=== PATIENT | female | born 1950 | race Caucasian/White ===

== ENCOUNTER 2023-04-24 10:17 | Outpatient (AMB) | payer MEDICARE, OTHER, SELFPAY ==
--- NOTE | 2023-04-24 11:23 | MHC.OFFWIV ---
Intake Vital Signs 04/24/23 11:24 Height 5 ft Weight 155 lb BMI 30.3 BP 160/100 H Blood Pressure Location Lt brachial Position Sitting Pulse 82 Pulse Source Pulse Oximeter Temp 97.1 F Temp Source Temporal Artery Scan Pulse Oximetry (%) 97 Oxygen Delivery Method Room Air Intake Visit Reasons: [employer]/ left eye irritation ([phone]) Intake Note: pt is here today for lft eye irritation started 1 week ago Patient Tobacco Use Status: Never used Tobacco Allergies No Known Allergies Allergy (Verified 04/24/23 11:25) Do you need a note to return to daycare/school/sports/work: No HPI HPI Comments History of Present Illness Details 73-year-old female presents today with a lesion on her upper eyelids. Denies any discharge or trauma to the area [facility] Social History Patient Tobacco Use Status: Never used Tobacco Review of Systems Const All systems reviewed & are unremarkable except as noted in HPI and below Physical Exam Vital Signs: Last Vital Signs Temp 97.1 F 04/24/23 11:24 Pulse 82 04/24/23 11:24 BP 160/100 H 04/24/23 11:24 Pulse Ox 97 04/24/23 11:24 Oxygen Delivery Method Room Air 04/24/23 11:24 BMI result Body Mass Index 30.3 Eyes Eyelids: Yes eyelid abnormality Conjunctivae: other (hordeolum present) Assessment & Plan Assessment & Plan (1) Hordeolum external: Code(s): H00.019 - Hordeolum externum unspecified eye, unspecified eyelid Plan: Erythromycin ophthalmic ointment ordered Plan See plan Medications: New erythromycin 1 appl ophthalmic-Left TID 3.5 grams 0RF Coding Level of Care Code Est Pt Level 3 (45962) Diagnoses Hordeolum external H00.019
[2023-04-24 11:24] VITALS: BP 160/100; PULSE 82; TEMP 36.2; O2SAT 97; BMI 30.3
== END 2023-04-24 12:05 | disposition home or self-care (01) ==
PROVIDERS: Visit Provider Physician Assistant Medical
DX: H00.019 Hordeolum externum unspecified eye, unspecified eyelid (principal)
CPT/HCPCS: 99213

== ENCOUNTER 2023-11-24 08:36 | Outpatient (AMB) | payer MEDICARE, OTHER, SELFPAY ==
--- NOTE | 2023-11-24 08:48 | AM.OFFWIN_ITS ---
Intake Vital Signs 11/24/23 08:49 Weight 154 lb BP 140/80 H Blood Pressure Location Lt brachial Position Sitting Pulse 90 Pulse Source Pulse Oximeter Pulse Oximetry (%) 97 Oxygen Delivery Method Room Air Intake Visit Reasons: EP left lower abdominal pain Intake Note: Patient here for lower left abdominal pain that has been present for about 2 days and is a sharp pain. Patient Tobacco Use Status: Never used Tobacco Allergies No Known Allergies Allergy (Verified 11/24/23 08:50) Do you need a note to return to daycare/school/sports/work: No HPI HPI Comments History of Present Illness Details Patient is a 73-year-old female complaining of 2 days of left lower abdominal sharp pain. She denies any fevers, nausea, vomiting, diarrhea, burning with urination, blood in her urine or low back pain aside from her chronic low back pain. She tells me she did have 1 episode of increased urgency 2 days ago but has not had any other symptoms since then. She denies a history of kidney stones. She does tell me that on 1 of her colonoscopies, she was told she has diverticulosis but has never had a diverticulitis flare. She also tells me she is concerned because 3 days ago, her sister gave her some cashew clusters and she is worried it set off a diverticulitis flare. She states she has taken since Colace to see if that would help but it did not, she states she is passing gas and moving her bowels as normal. [facility] Social History Patient Tobacco Use Status: Never used Tobacco Review of Systems Const All systems reviewed & are unremarkable except as noted in HPI and below Physical Exam Vital Signs: Last Vital Signs Pulse 90 11/24/23 08:49 BP 140/80 H 11/24/23 08:49 Pulse Ox 97 11/24/23 08:49 Oxygen Delivery Method Room Air 11/24/23 08:49 Const General: cooperative, healthy appearing, comfortable, no acute distress and well developed Orientation/consciousness: patient oriented x3 Limitations: no limitations HEENT Head: Yes normal to inspection Eyes General: appearance normal, both eyes and all related structures Neck Neck: Yes normal visual inspection and Yes full ROM Resp Effort & Inspection: normal respiratory effort and able to speak in complete sentences GI Inspection: Yes normal to inspection Palpation (GI): Soft to palpation and Tenderness to palpation present (GI) in the LLQ and suprapubicly General: Yes CVA tenderness Back/Spine/Pelvis Back: CVA tenderness Skin General skin exam: no rashes or lesions noted Neuro General: patient oriented x3 Extrem General: Yes normal to inspection Results AMB Urinalysis, Automated UA Leukoctes 0 Jamal/uL Last Edit by YOMI Fields on 11/24/23 09:15 UA Nitrite Negative Last Edit by Carol Jewell [facility] on 11/24/23 09:15 UA Urobilinogen 0.2 mg/dL Last Edit by Carol Jewell [facility] on 11/24/23 09:15 UA Protein 0 mg/dL Last Edit by Carol Jewell [facility] on 11/24/23 09:15 UA pH 6.0 Last Edit by Carol Jewell [facility] on 11/24/23 09:15 UA Blood 0 Steve/uL Last Edit by Carol Jewell [facility] on 11/24/23 09:15 UA Specific [place] 1.005 Last Edit by Carol Jewell [facility] on 11/24/23 09:15 UA Ketone Negative Last Edit by Carol Jewell [facility] on 11/24/23 09:15 UA Bilirubin 0 mg/dL Last Edit by Carol Jewell [facility] on 11/24/23 09:15 UA Glucose 0 mg/dL Last Edit by Carol Jewell [facility] on 11/24/23 09:15 Results Reviewed Results Reviewed: Laboratory Last Values Urine pH (Auto) 6.0 11/24/23 09:14 Specific [place] (Auto) 1.005 11/24/23 09:14 Urine Protein (Auto) 0 mg/dL 11/24/23 09:14 Glucose (UA)(Auto) 0 mg/dL 11/24/23 09:14 Urine Ketones (Auto) Negative 11/24/23 09:14 Urine Blood (Auto) 0 Steve/uL 11/24/23 09:14 Urine Nitrite (Auto) Negative 11/24/23 09:14 Urine Bilirubin (Auto) 0 mg/dL 11/24/23 09:14 Urine Urobilinogen (Auto) 0.2 mg/dL 11/24/23 09:14 Leukocyte Esterase (Auto) 0 Jamal/uL 11/24/23 09:14 Assessment & Plan Assessment & Plan (1) Diverticulitis: Code(s): K57.92 - Diverticulitis of intestine, part unspecified, without perforation or abscess without bleeding Plan: Vital signs are stable, patient well-appearing, however she was exquisitely tender in the left lower quadrant, UA was negative for infection or blood. We will treat with Augmentin for mild acute diverticulitis. Did explain to patient that we do not have a CT scan to back this diagnosis up and if she has worsening pain or fevers, she should go to the emergency department. Plan see above Orders: Orders AMB Urinalysis Automated Today Z13.9 - Encounter for screening, unspecified Medications: New amoxicillin-pot clavulanate 875-125 mg 1 tab PO Q8H 21 tabs 0RF Coding Level of Care Code New Pt Level 3 (09854) Diagnoses Diverticulitis K57.92
[2023-11-24 08:49] VITALS: BP 140/80; PULSE 90; O2SAT 97
== END 2023-11-24 09:26 | disposition home or self-care (01) ==
PROVIDERS: PCP Hospitalist; Visit Provider Physician Assistant
DX: K57.92 Diverticulitis of intestine, part unspecified, without perforation or abscess without bleeding (principal); Z13.9 Encounter for screening, unspecified

== ENCOUNTER → 2023-11-24 08:36 | Outpatient (BNVA) | payer MEDICARE, OTHER, SELFPAY | PROVIDERS: PCP Hospitalist | DX: K57.92 Diverticulitis of intestine, part unspecified, without perforation or abscess without bleeding (principal); R10.9 Unspecified abdominal pain | CPT/HCPCS: 81003; 99202 ==